=== PATIENT | male | born 1950 | race Caucasian/White ===

== ENCOUNTER 2016-07-31 05:41 | Inpatient (IN) | payer BC, MEDICARE ==
[~2016-07-31] VITALS: Ht 182.9 cm; Wt 85.4 kg
[2016-07-31] MEDS ORDERED: PROPOFOL 100 ML IV ONE (08:57)
[2016-07-31] MEDS ORDERED: PROPOFOL 100 ML IV PRN (09:09)
[2016-07-31] MEDS ORDERED: LIDOCAINE-MPF 1%, 2ML ENDO PRN (09:30)
[2016-07-31] MEDS ORDERED: PHARMACY MAY ADJ FOR RENAL FX MC SCH (09:30)
[2016-07-31] MEDS ORDERED: FENTANYL PF 100 MCG/2ML ONE ×2 (10:26→13:58)
[2016-07-31] MEDS ORDERED: FENTANYL PF 2,500 MCG in SODIUM CHLORIDE 0.9% 200 ML IV PRN (10:30)
[2016-07-31] MEDS ORDERED: FENTANYL PF 100 MCG/2ML IV ONE (10:30)
[2016-07-31 10:36] LABS: ASPARTATE AMINO TRANSFERASE 26 U/L (15-37); BLOOD UREA NITROGEN 23 mg/dL (7-18)
[2016-07-31 10:40] LABS: ABG COLLECTION SITE RIGHT BRACHIAL; COLLATERAL CIRCULATION TESTING NORMAL
[2016-07-31 10:41] LABS: IS PT STATUS REG ER OR PRE ER? NO
[2016-07-31] MEDS ORDERED: PLEASE ENTER HEIGHT AND WEIGHT MC SCH (11:00)
[2016-07-31] MEDS ORDERED: VANCOMYCIN PER PHARMACY MC PRN (11:30)
[2016-07-31] MEDS ORDERED: VECURONIUM 10 MG IVPush ONE (11:30)
[2016-07-31] MEDS ORDERED: VECURONIUM 10 MG ONE (11:33)
[2016-07-31] MEDS ORDERED: MIDAZOLAM 1 MG/ML, 5ML ONE (11:36)
[2016-07-31] MEDS ORDERED: PHARMACOKINETIC MONITORING MC PRN (12:00)
[2016-07-31] MEDS ORDERED: VECURONIUM 50 MG in SODIUM CHLORIDE 0.9% 250 ML IV PRN (12:00)
[2016-07-31] MEDS ORDERED: MIDAZOLAM HCL 25 MG in SODIUM CHLORIDE 0.9% 245 ML IV PRN (12:00)
[2016-07-31] MEDS ORDERED: MIDAZOLAM 1 MG/ML, 5ML IVPush ONE (12:00)
[2016-07-31] MEDS ORDERED: NEOSTIGMINE 1 MG/ML, 10ML ONE (12:03)
[2016-07-31] MEDS ORDERED: GLYCOPYRROLATE 0.2MG/1ML ONE (12:03)
[2016-07-31] MEDS ORDERED: ROCURONIUM 10 MG/ML ONE (12:03)
[2016-07-31] MEDS ORDERED: FENTANYL PF 250 MCG/5ML ONE (12:15)
[2016-07-31] MEDS ORDERED: HYDROmorphone 2 MG/ML, 1ML ONE (13:58)
[2016-07-31] MEDS ORDERED: ONDANSETRON 2MG/ML, 2ML ONE (13:58)
[2016-07-31] MEDS ORDERED: hydrALAzine 20 MG/ML, 1ML IV PRN (14:00)
[2016-07-31] MEDS ORDERED: METOCLOPRAMIDE 5 MG/ML, 2ML IV PRN (14:00)
[2016-07-31] MEDS ORDERED: PROMETHAZINE 25 MG/ML, 1ML IV PRN (14:00)
[2016-07-31] MEDS ORDERED: LABETALOL 5MG/ML, 20ML IV PRN (14:00)
[2016-07-31] MEDS ORDERED: MEPERIDINE/PF 25MG/0.5ML IVPush PRN (14:00)
[2016-07-31] MEDS ORDERED: HYDROmorphone 1 MG/ML, 1ML IV PRN (14:00)
[2016-07-31] MEDS ORDERED: FENTANYL PF 100 MCG/2ML IV PRN (14:00)
[2016-07-31] MEDS: ONDANSETRON 2MG/ML, 2ML IVPush PRN (14:01)
[2016-07-31] MEDS: VANCOMYCIN 1,600 MG in SODIUM CHLORIDE 0.9% 250 ML IV SCH (15:12)
[2016-07-31] MEDS: SODIUM CHLORIDE 0.9% 1,000 ML IV SCH ×2 (15:14→20:41)
[2016-07-31] MEDS ORDERED: ONDANSETRON 2MG/ML, 2ML IVPush PRN (16:00)
[2016-07-31] MEDS: PIPERACILLIN/TAZO/PMX 3.375GM 50 ML IV SCH ×2 (16:04→21:40)
[2016-07-31] MEDS: D5%-0.9% NACL+KCL 20MEQ 1,000 ML IV SCH (16:04)
[2016-07-31] MEDS: METRONIDAZOLE PMX 500MG/100ML 100 ML IV SCH ×2 (17:10→21:40)
[2016-07-31] MEDS: MORPHINE SULFATE 4 MG/ML, 1ML IV PRN ×4 (19:47→23:15)
[2016-07-31] MEDS: FAMOTIDINE 20 MG/2 ML IVPush SCH (20:41)
[2016-08-01] MEDS: MORPHINE SULFATE 4 MG/ML, 1ML IV PRN ×5 (00:19→05:43)
[2016-08-01] MEDS ORDERED: SODIUM CHLORIDE 0.9% 1,000ML IVBOLUS ONE (00:30)
[2016-08-01] MEDS: D5%-0.9% NACL+KCL 20MEQ 1,000 ML IV SCH ×3 (03:46→16:00)
[2016-08-01] MEDS: PIPERACILLIN/TAZO/PMX 3.375GM 50 ML IV SCH ×4 (03:50→21:33)
[2016-08-01] MEDS: METRONIDAZOLE PMX 500MG/100ML 100 ML IV SCH ×4 (03:50→22:04)
[2016-08-01 04:33] LABS: ABG COLLECTION SITE RIGHT RADIAL; COLLATERAL CIRCULATION TESTING NORMAL
[2016-08-01 04:34] LABS: ASPARTATE AMINO TRANSFERASE 30 U/L (15-37); BLOOD UREA NITROGEN 16 mg/dL (7-18)
[2016-08-01] MEDS: VANCOMYCIN 1,600 MG in SODIUM CHLORIDE 0.9% 250 ML IV SCH (05:43)
[2016-08-01] MEDS ORDERED: HYDR-3241 PO (09:14)
[2016-08-01] MEDS ORDERED: DOCU100C8 PO (09:14)
[2016-08-01] MEDS ORDERED: IBUP800T PO (09:14)
[2016-08-01] MEDS ORDERED: DILT360C10 PO (09:14)
[2016-08-01] MEDS ORDERED: MORP15TA3 PO (09:14)
[2016-08-01] MEDS ORDERED: MORP30CP12 PO (09:14)
[2016-08-01] MEDS ORDERED: ASPI325T80 PO (09:14)
[2016-08-01] MEDS ORDERED: FURO40TA6 PO (09:14)
[2016-08-01] MEDS: ENOXAPARIN 30 MG/0.3 ML SQ SCH ×2 (10:16→21:34)
[2016-08-01] MEDS: FAMOTIDINE 20 MG/2 ML IVPush SCH ×2 (10:16→21:33)
[2016-08-01] MEDS: DILTIAZEM 30 MG TABLET PO SCH ×3 (14:05→21:32)
[2016-08-01] MEDS: ONDANSETRON 2MG/ML, 2ML IVPush PRN (15:01)
[2016-08-02] MEDS: VANCOMYCIN 1,600 MG in SODIUM CHLORIDE 0.9% 250 ML IV SCH ×2 (00:10→18:40)
[2016-08-02] MEDS: D5%-0.9% NACL+KCL 20MEQ 1,000 ML IV SCH ×3 (02:08→13:55)
[2016-08-02 04:00] VITALS: BP 135/77
[2016-08-02] MEDS: PIPERACILLIN/TAZO/PMX 3.375GM 50 ML IV SCH ×4 (04:32→22:00)
[2016-08-02] MEDS ORDERED: VANCOMYCIN 1,700 MG in SODIUM CHLORIDE 0.9% 250 ML IV SCH (05:00)
[2016-08-02 05:12] LABS: BLOOD UREA NITROGEN 9 mg/dL (7-18)
[2016-08-02] MEDS: METRONIDAZOLE PMX 500MG/100ML 100 ML IV SCH ×4 (05:14→23:09)
[2016-08-02 05:15] LABS: ASPARTATE AMINO TRANSFERASE 22 U/L (15-37)
[2016-08-02] MEDS: DILTIAZEM 30 MG TABLET PO SCH ×4 (06:10→21:00)
[2016-08-02] MEDS: FAMOTIDINE 20 MG/2 ML IVPush SCH ×2 (08:51→21:00)
[2016-08-02] MEDS: ENOXAPARIN 30 MG/0.3 ML SQ SCH ×2 (10:21→23:09)
[2016-08-02 12:38] VITALS: BP 120/79
[2016-08-02 19:54] VITALS: BP 127/79
[2016-08-03 03:26] VITALS: BP 129/79
[2016-08-03] MEDS: PIPERACILLIN/TAZO/PMX 3.375GM 50 ML IV SCH ×4 (04:21→21:49)
[2016-08-03] MEDS ORDERED: VANCOMYCIN 1,700 MG in SODIUM CHLORIDE 0.9% 250 ML IV SCH (05:00)
[2016-08-03] MEDS: D5%-0.9% NACL+KCL 20MEQ 1,000 ML IV SCH ×2 (05:28→21:37)
[2016-08-03] MEDS: METRONIDAZOLE PMX 500MG/100ML 100 ML IV SCH ×4 (05:29→23:13)
[2016-08-03] MEDS ORDERED: ASPIRIN 325 MG TABLET PO SCH (06:00)
[2016-08-03] MEDS: DILTIAZEM 30 MG TABLET PO SCH ×4 (06:39→21:38)
[2016-08-03 07:02] LABS: BLOOD UREA NITROGEN 10 mg/dL (7-18)
[2016-08-03 07:46] VITALS: BP 130/83
[2016-08-03] MEDS: FAMOTIDINE 20 MG/2 ML IVPush SCH ×2 (10:22→21:38)
[2016-08-03] MEDS: ENOXAPARIN 30 MG/0.3 ML SQ SCH ×2 (10:25→21:38)
[2016-08-03 14:34] VITALS: BP 128/81
[2016-08-03] MEDS ORDERED: VANCOMYCIN 1,500 MG in SODIUM CHLORIDE 0.9% 250 ML IV SCH (18:00)
[2016-08-03 20:05] VITALS: BP 112/80
[2016-08-04 01:41] VITALS: BP 130/77
[2016-08-04] MEDS: PIPERACILLIN/TAZO/PMX 3.375GM 50 ML IV SCH ×4 (03:42→23:12)
[2016-08-04] MEDS: METRONIDAZOLE PMX 500MG/100ML 100 ML IV SCH ×4 (04:24→22:00)
[2016-08-04] MEDS: ASPIRIN 81 MG TABLET EC PO SCH (05:57)
[2016-08-04] MEDS: DILTIAZEM 30 MG TABLET PO SCH ×4 (05:57→22:01)
[2016-08-04 06:33] VITALS: BP 128/87
[2016-08-04 06:41] LABS: BLOOD UREA NITROGEN 12 mg/dL (7-18)
[2016-08-04] MEDS: D5%-0.9% NACL+KCL 20MEQ 1,000 ML IV SCH ×2 (09:53→22:00)
[2016-08-04] MEDS: FAMOTIDINE 20 MG/2 ML IVPush SCH ×2 (09:53→22:00)
[2016-08-04] MEDS: ENOXAPARIN 30 MG/0.3 ML SQ SCH ×2 (10:33→22:00)
[2016-08-04 16:05] VITALS: BP 113/63
[2016-08-04 16:07] VITALS: BP 113/63
[2016-08-04 20:00] VITALS: BP 114/77
[2016-08-04] MEDS ORDERED: POTASSIUM CHLORIDE 20 MEQ TAB.ER.PRT PO ONE (23:00)
[2016-08-05 02:00] VITALS: BP 127/80
[2016-08-05] MEDS: METRONIDAZOLE PMX 500MG/100ML 100 ML IV SCH ×3 (03:25→16:16)
[2016-08-05 03:51] LABS: BLOOD UREA NITROGEN 11 mg/dL (7-18)
[2016-08-05] MEDS: PIPERACILLIN/TAZO/PMX 3.375GM 50 ML IV SCH ×3 (05:03→17:23)
[2016-08-05 06:32] VITALS: BP 130/88
[2016-08-05] MEDS: DILTIAZEM 30 MG TABLET PO SCH ×4 (06:33→20:29)
[2016-08-05] MEDS: ASPIRIN 81 MG TABLET EC PO SCH (06:33)
[2016-08-05] MEDS: ENOXAPARIN 30 MG/0.3 ML SQ SCH ×2 (09:46→22:42)
[2016-08-05] MEDS: FAMOTIDINE 20 MG/2 ML IVPush SCH (09:46)
[2016-08-05] MEDS ORDERED: BISACODYL 10 MG SUPP PR PRN (10:30)
[2016-08-05] MEDS: DOCUSATE 100 MG CAPSULE PO SCH ×2 (11:18→20:29)
[2016-08-05 13:11] VITALS: BP 119/76
[2016-08-05] MEDS: D5%-0.9% NACL+KCL 20MEQ 1,000 ML IV SCH (16:13)
[2016-08-05 20:22] VITALS: BP 116/72
[2016-08-05] MEDS: FAMOTIDINE 20 MG TABLET PO SCH (20:29)
[2016-08-05] MEDS: metroNIDAZOLE 500 MG TABLET PO SCH (20:29)
[2016-08-05] MEDS ORDERED: POTASSIUM CHLORIDE 20 MEQ TAB.ER.PRT PO ONE (22:45)
[2016-08-06 00:32] VITALS: BP 121/78
[2016-08-06] MEDS ORDERED: DILTIAZEM 120 MG CAP.ER.24H PO SCH (06:00)
[2016-08-06 06:17] VITALS: BP 122/81
[2016-08-06] MEDS: ASPIRIN 81 MG TABLET EC PO SCH (06:18)
[2016-08-06] MEDS: metroNIDAZOLE 500 MG TABLET PO SCH ×3 (06:18→16:40)
[2016-08-06 06:33] LABS: BLOOD UREA NITROGEN 11 mg/dL (7-18)
[2016-08-06] MEDS: ENOXAPARIN 30 MG/0.3 ML SQ SCH (09:59)
[2016-08-06] MEDS: FAMOTIDINE 20 MG TABLET PO SCH (09:59)
[2016-08-06] MEDS: DOCUSATE 100 MG CAPSULE PO SCH (09:59)
[2016-08-06 13:09] VITALS: BP 116/73
[2016-08-06] MEDS ORDERED: DILT120C9 PO (14:25)
[2016-08-06] MEDS ORDERED: OXYC5CAP4 PO (17:13)
== END 2016-08-06 17:45 | disposition home or self-care (01) | DRG 329 ==
LOC: CCU 08:33 → 4NOR 08-02 12:34 → DCLOUNGE 08-06 16:50
PROVIDERS: ADMIT Internal Medicine; ATTEND Internal Medicine
PROC: 0T9B70Z Drainage of Bladder with Drainage Device, Via Natural or Artificial Opening (ICD-10-PCS; 2016-07-31)
PROC: 5A1935Z Respiratory Ventilation, Less than 24 Consecutive Hours (ICD-10-PCS; 2016-07-31)
PROC: 0BH17EZ Insertion of Endotracheal Airway into Trachea, Via Natural or Artificial Opening (ICD-10-PCS; 2016-07-31)
PROC: 0DTF0ZZ Resection of Right Large Intestine, Open Approach (ICD-10-PCS; principal; 2016-07-31 14:45)
DX: K55.9 Vascular disorder of intestine, unspecified (principal); E43 Unspecified severe protein-calorie malnutrition; J96.00 Acute respiratory failure, unspecified whether with hypoxia or hypercapnia; I48.92 Unspecified atrial flutter; Z99.11 Dependence on respirator [ventilator] status; C79.51 Secondary malignant neoplasm of bone; Z85.46 Personal history of malignant neoplasm of prostate; C61 Malignant neoplasm of prostate; Z79.891 Long term (current) use of opiate analgesic; Z87.891 Personal history of nicotine dependence; Z51.5 Encounter for palliative care; I48.0 Paroxysmal atrial fibrillation; I10 Essential (primary) hypertension; Z79.82 Long term (current) use of aspirin; E87.6 Hypokalemia; Z68.25 Body mass index [BMI] 25.0-25.9, adult
CPT/HCPCS: 36415; 36600; 71010; 80048; 80053; 80202; 81001; 82330; 82803; 83605; 83735; 83930; 84478; 84484; 85025; 85610; 86850; 86900; 87081; 87086; 88307; 93306; 94002; J1170; J1650; J2250; J2270; J2405; J2543; J2704; J2710; J3010; J3370; J3490; J3480; J7030; J7050; S0028